=== PATIENT | female | born 1980 | race Hispanic/Latino ===

== ENCOUNTER 2018-10-05 14:34 | Emergency (ER) | payer MEDICAID ==
[2018-10-05 16:00] LABS: BASO # 0.1 K/uL (0.0-0.2); BASO % 1.1 % (0.0-2.0); EOS # 0.1 K/uL (0.0-0.7); EOS % 0.8 % (0.0-4.0); HEMOGLOBIN 13.4 g/dL (12.0-16.0); LYMPH # 1.9 K/uL (1.0-4.3); LYMPH % 24.7 % (20.0-40.0); MEAN CELL VOLUME 90.8 fl (81.0-99.0); MEAN CORPUSCULAR HEMOGLOBIN 30.8 pg (27.0-31.0); MEAN CORPUSCULAR HGB CONC 33.9 g/dL (33.0-37.0); MEAN PLATELET VOLUME 7.9 fl (7.2-11.7); MONO # 0.4 K/uL (0.0-0.8); MONO % 5.4 % (0.0-10.0); NEUT # 5.1 K/uL (1.8-7.0); RBC 4.36 Mil/uL (3.80-5.20); WHITE BLOOD COUNT 7.5 K/uL (4.8-10.8)
[2018-10-05 16:06] LABS: SQUAMOUS EPITHIAL 2 /hpf (0-5); URINE BACTERIA RARE (<OCC); URINE BILIRUBIN NEGATIVE (NEGATIVE); URINE BLOOD LARGE (NEGATIVE); URINE CLARITY SLIGHTY-CLOUDY (Clear); URINE COLOR YELLOW (YELLOW); URINE GLUCOSE (UA) NEG (NEGATIVE); URINE LEUKOCYTE ESTERASE NEG Leu/uL (Negative); URINE PROTEIN NEGATIVE (NEGATIVE); URINE UROBILINOGEN 0.2-1.0 mg/dL (0.2-1.0)
[2018-10-05 16:09] LABS: PROTHROMBIN TIME 11.9 Seconds (9.8-13.1)
[2018-10-05 16:12] LABS: PARTIAL THROMBOPLASTIN TIME 33.5 Seconds (25.6-37.1)
--- NOTE | 2018-10-05 16:37 | ED PDOC ---
HPI: Female Pain Time Seen by Provider: 10/05/18 15:02 Chief Complaint (Nursing): Female Genitourinary History Per: Patient Additional Complaint(s): Pt. states since August she's had 3 periods. States the first two lasted for 4-5 days and were without any pain. On 09/24/2018 she started bleeding once again which is still persistent but 2 days ago she developed L sided cramping prompting ED visit. Bleeding is quantified as the 2nd or 3rd day of her menstrual cycle. Also states for the past year and half she's had unintentional 50lb weight loss. Denies abd pain, dysuria, hematuria, hx of anemia, previous blood transfusions, fever, night sweats, melena, hematochezia, BRBPR, abnormal stools, cough, hemoptysis. Past Medical History Reviewed: Historical Data, Nursing Documentation, Vital Signs Vital Signs: Last Vital Signs Temp 98.6 F 10/05/18 14:46 Pulse 71 10/05/18 14:46 Resp 18 10/05/18 14:46 BP 118/76 10/05/18 14:46 Pulse Ox 100 10/05/18 14:46 - Medical History PMH: Denies: Chronic Kidney Disease - Surgical History Surgical History: Cholecystectomy - Family History Family History: States: No Known Family Hx - Home Medications Home Medications: Ambulatory Orders Medication Instructions Recorded Magnesium [Magnesium Citrate] 420 mg PO DAILY #1 ml 07/11/14 Alprazolam [Xanax] 0.5 mg PO Q6 PRN #10 tab 01/29/16 - Allergies Allergies/Adverse Reactions: Allergies Allergy/AdvReac Type Severity Reaction Status Date / Time No Known Allergies Allergy Verified 10/05/18 14:46 Review of Systems ROS Statement: Except As Marked, All Systems Reviewed And Found Negative Genitourinary Female: Positive for: Vaginal Bleeding, Pelvic Pain Physical Exam - Physical Exam Appears: Positive for: Well, Non-toxic, No Acute Distress Skin: Positive for: Normal Color, Warm. Negative for: Rash Eye Exam: Positive for: Normal appearance Cardiovascular/Chest: Positive for: Regular Rate, Rhythm Respiratory: Positive for: Normal Breath Sounds Gastrointestinal/Abdominal: Positive for: Normal Exam, Bowel Sounds, Soft. Negative for: Tenderness, Mass, Distended Back: Positive for: Normal Inspection. Negative for: L CVA Tenderness, R CVA Tenderness Neurologic/Psych: Positive for: Alert, Oriented (x3) - Laboratory Results Result Diagrams: 10/05/18 15:40 10/05/18 16:00 Lab Results: PT 11.9 Seconds (9.8-13.1) 10/05/18 15:40 INR 1.0 10/05/18 15:40 APTT 33.5 Seconds (25.6-37.1) 10/05/18 15:40 Urine Color Yellow (YELLOW) 10/05/18 15:40 Urine Clarity Slighty-cloudy (Clear) 10/05/18 15:40 Urine pH 6.0 (5.0-8.0) 10/05/18 15:40 Ur Specific [place] 1.023 (1.003-1.030) 10/05/18 15:40 Urine Protein Negative mg/dL (NEGATIVE) 10/05/18 15:40 Urine Glucose (UA) Neg mg/dL (NEGATIVE) 10/05/18 15:40 Urine Ketones Negative mg/dL (NEGATIVE) 10/05/18 15:40 Urine Blood Large (NEGATIVE) 10/05/18 15:40 Urine Nitrate Negative (NEGATIVE) 10/05/18 15:40 Urine Bilirubin Negative (NEGATIVE) 10/05/18 15:40 Urine Urobilinogen 0.2-1.0 mg/dL (0.2-1.0) 10/05/18 15:40 Ur Leukocyte Esterase Neg Chun/uL (Negative) 10/05/18 15:40 Urine RBC (Auto) 10 /hpf (0-3) H 10/05/18 15:40 Urine Microscopic WBC 2 /hpf (0-5) 10/05/18 15:40 Ur Squamous Epith Cells 2 /hpf (0-5) 10/05/18 15:40 Urine Bacteria Rare (<OCC) 10/05/18 15:40 - ECG O2 Sat by Pulse Oximetry: 100 - Progress ED Course And Treament: Labs, TVUS ordered. Pt. informed of all results and advised to f/u with PMD. Pt. states she f/u with [facility] which includes an OBGYN specialty. Advised to f/u but is to return to ED immediately if symptoms worsen. Pt. verbalized correct understanding of necessary f/u and plan. Disposition - Clinical Impression Clinical Impression: Abnormal uterine bleeding (AUB), Unintentional weight loss - Patient ED Disposition Is Patient to be Admitted: No - Disposition Referrals: [facility] [Outside] Disposition: Routine/Home Disposition Time: 17:39 Condition: STABLE Additional Instructions: FOLLOW UP WITH [facility] FOR FURTHER EVALUATION RETURN TO ED IMMEDIATELY IF SYMPTOMS WORSEN ROLANDO DUMONT, thank you for letting us take care of you today. Your provider was Doug Khan MD and you were treated for VAGINAL BLEEDING. The emergency medical care you received today was directed at your acute symptoms. If you were prescribed any medication, please fill it and take as directed. It may take several days for your symptoms to resolve. Return to the Emergency Department if your symptoms worsen, do not improve, or if you have any other problems. Please contact your doctor or call one of the physicians/clinics you have been referred to that are listed on the Patient Visit Information form that is included in your discharge packet. Bring any paperwork you were given at discharge with you along with any medications you are taking to your follow up visit. Our treatment cannot replace ongoing medical care by a primary care provider outside of the emergency department. Thank you for allowing the [facility] team to be part of your care today. If you had an X-Ray or CT scan: A Radiologist will review the ED reading if any change in treatment is needed we will contact you. If you had a blood, urine, or wound culture: It will take several days for the results, if any change in treatment is needed we will contact you. If you had an STI test: It will take 48 hours for the results. Please call after 1 week if you have not heard back. Instructions: Absent or Irregular Periods Forms: [facility] ([place])
[2018-10-05 16:38] LABS: ALB/GLOB RATIO 1.4 (1.0-2.1); ALBUMIN 4.3 g/dL (3.5-5.0); ALT/SGPT 35 U/L (9-52); AST/SGOT 25 U/L (14-36); BLOOD UREA NITROGEN 14 mg/dl (7-17); CALCIUM 9.5 mg/dL (8.4-10.2); GFR NON-AFRICAN AMERICAN > 60
--- NOTE | 2018-10-05 16:55 | US ---
Date of service: 10/05/2018 HISTORY: pelvic pain; vaginal bleeding COMPARISON: None available. TECHNIQUE: Transabdominal and transvaginal pelvic ultrasound was performed with longitudinal and transverse images submitted for interpretation. FINDINGS: UTERUS: Measures 7.8 x 4.5 x 6.0 cm. Normal in size and appearance. No fibroid or other mass lesion seen. ENDOMETRIUM: Measures 3.0 mm in diameter. Unremarkable. CERVIX: A moderate sized nabothian cysts identified anteriorly, measure 1.3 x 0.9 x 1.5 cm-simple in appearance. RIGHT OVARY: Measures 2.9 x 1.7 x 2.4 cm. No solid mass. Normal flow. LEFT OVARY: Measures 4.9 x 2.4 x 3.0 cm. A 2.8 x 2.1 x 3.3 cm solid lesion is not completely excluded related to left ovary, mildly enlarging it. Normal flow. FREE FLUID: No significant free fluid noted. OTHER FINDINGS: None. IMPRESSION: Mild enlarged of the left there is appreciated potentially by solid mass or potentially complex cyst measuring 2.8 x 2.1 x 3.3 cm. Consider follow-up MRI of the pelvis if clinically warranted for further characterization. Right ovary and uterus unremarkable. Moderate nabothian cyst anterior cervix appearing simple 1.5 cm greatest dimension.
[2018-10-05 19:03] VITALS: BP 100/63; PULSE 80; RESP 18; TEMP 98.1
[2018-10-05 19:33] VITALS: O2SAT 100
== END 2018-10-05 17:50 | disposition home or self-care (01) ==
LOC: H.ER 14:34
DX: N93.9 Abnormal uterine and vaginal bleeding, unspecified (principal); R63.4 Abnormal weight loss

== ENCOUNTER 2018-11-05 11:02 | Emergency (ER) | payer MEDICAID ==
[2018-11-05] MEDS ORDERED: Sodium Chloride 0.9% 1,000 ML IV STA (12:10)
[2018-11-05 13:03] LABS: BASO % 0.6 % (0.0-2.0); EOS % 0.9 % (0.0-4.0); HEMOGLOBIN 14.4 g/dL (12.0-16.0); LYMPH # 1.5 K/uL (1.0-4.3); LYMPH % 29.2 % (20.0-40.0); MEAN CELL VOLUME 91.3 fl (81.0-99.0); MEAN CORPUSCULAR HEMOGLOBIN 30.4 pg (27.0-31.0); MEAN CORPUSCULAR HGB CONC 33.3 g/dL (33.0-37.0); MEAN PLATELET VOLUME 8.1 fl (7.2-11.7); MONO # 0.4 K/uL (0.0-0.8); MONO % 7.1 % (0.0-10.0); NEUT # 3.1 K/uL (1.8-7.0); NEUT % 62.2 % (50.0-75.0); NRBC % 0.1 % (0.0-0.0); RBC 4.75 Mil/uL (3.80-5.20); RED CELL DISTRIBUTION WIDTH 14.6 % (11.5-14.5)
[2018-11-05 13:10] LABS: SQUAMOUS EPITHIAL 7 /hpf (0-5); URINE BACTERIA RARE (<OCC); URINE BILIRUBIN NEGATIVE (NEGATIVE); URINE BLOOD LARGE (NEGATIVE); URINE CLARITY CLOUDY (Clear); URINE COLOR AMBER (YELLOW); URINE GLUCOSE (UA) NEG (NEGATIVE); URINE LEUKOCYTE ESTERASE NEG Leu/uL (Negative); URINE PROTEIN 30 mg/dL (NEGATIVE)
[2018-11-05 13:11] LABS: ALB/GLOB RATIO 1.4 (1.0-2.1); ALBUMIN 4.4 g/dL (3.5-5.0); ALT/SGPT 29 U/L (9-52); AST/SGOT 25 U/L (14-36); BLOOD UREA NITROGEN 12 mg/dl (7-17); CALCIUM 9.3 mg/dL (8.4-10.2); GFR NON-AFRICAN AMERICAN > 60
--- NOTE | 2018-11-05 14:22 | ED PDOC ---
HPI: Abdomen Time Seen by Provider: 11/05/18 11:35 Chief Complaint (Nursing): Female Genitourinary Chief Complaint (Provider): Abdominal Pain History Per: Patient History/Exam Limitations: no limitations Onset/Duration Of Symptoms: Days (2) Current Symptoms Are (Timing): Still Present Location Of Pain/Discomfort: LLQ Quality Of Discomfort: "Pain" Associated Symptoms: denies: Fever Additional Complaint(s): 38 year old female presents to the ED for an evaluation of nausea and vomiting since Sunday. Patient reports of worsening LLQ pain onset for the past 2 days. She was recently told she has a cyst on her left ovary after a work up for continuous vaginal bleeding. She was started on control by her primary which stopped the bleeding and returned 3 days afterwards. Patient reports the LLQ pain is new with concerning symptom. Otherwise, she denies, bloody or bilious vomiting, diarrhea or fever. PMD: Manuela Hawley Past Medical History Reviewed: Historical Data, Nursing Documentation, Vital Signs Vital Signs: Last Vital Signs Temp 98.0 F 11/05/18 11:06 Pulse 89 11/05/18 11:06 Resp 16 11/05/18 11:06 BP 103/65 11/05/18 11:06 Pulse Ox 98 11/05/18 11:06 - Medical History PMH: No Chronic Diseases Denies: Chronic Kidney Disease - Surgical History Surgical History: Cholecystectomy - Family History Family History: States: Unknown Family Hx - Social History Current smoker - smoking cessation education provided: Yes (Light Smoker < 10 Cigarettes Daily) Alcohol: None Drugs: Cannabis - Home Medications Home Medications: Ambulatory Orders Medication Instructions Recorded Magnesium [Magnesium Citrate] 420 mg PO DAILY #1 ml 07/11/14 Alprazolam [Xanax] 0.5 mg PO Q6 PRN #10 tab 01/29/16 - Allergies Allergies/Adverse Reactions: Allergies Allergy/AdvReac Type Severity Reaction Status Date / Time No Known Allergies Allergy Verified 10/05/18 14:46 Review of Systems ROS Statement: Except As Marked, All Systems Reviewed And Found Negative Constitutional: Negative for: Fever, Chills Gastrointestinal: Positive for: Nausea, Vomiting, Abdominal Pain. Negative for: Diarrhea Physical Exam - Reviewed Nursing Documentation Reviewed: Yes Vital Signs Reviewed: Yes - Physical Exam Appears: Positive for: Well, Non-toxic, No Acute Distress Head Exam: Positive for: ATRAUMATIC, NORMAL INSPECTION, NORMOCEPHALIC Skin: Positive for: Normal Color, Warm, Dry. Negative for: Rash Eye Exam: Positive for: EOMI, Normal appearance, PERRL ENT: Positive for: Normal ENT Inspection Neck: Positive for: Normal, Painless ROM, Supple. Negative for: Decreased ROM Cardiovascular/Chest: Positive for: Regular Rate, Rhythm. Negative for: Murmur Respiratory: Positive for: Normal Breath Sounds. Negative for: Decreased Breath Sounds, Wheezing, Respiratory Distress Gastrointestinal/Abdominal: Positive for: Tenderness (LLQ) Back: Positive for: Normal Inspection Extremity: Positive for: Normal ROM. Negative for: Tenderness, Pedal Edema, Deformity Neurologic/Psych: Positive for: Alert, Oriented (x3) - Laboratory Results Result Diagrams: 11/05/18 12:50 11/05/18 12:50 Lab Results: Total Bilirubin 0.4 mg/dl (0.2-1.3) 11/05/18 12:50 AST 25 U/L (14-36) 11/05/18 12:50 ALT 29 U/L (9-52) 11/05/18 12:50 Alkaline Phosphatase 55 U/L (38-126) 11/05/18 12:50 Total Protein 7.7 G/DL (6.3-8.2) 11/05/18 12:50 Albumin 4.4 g/dL (3.5-5.0) 11/05/18 12:50 Globulin 3.2 gm/dL (2.2-3.9) 11/05/18 12:50 Albumin/Globulin Ratio 1.4 (1.0-2.1) 11/05/18 12:50 Urine Color [place] (YELLOW) 11/05/18 12:50 Urine Clarity Cloudy (Clear) 11/05/18 12:50 Urine pH 5.0 (5.0-8.0) 11/05/18 12:50 Ur Specific [place] 1.028 (1.003-1.030) 11/05/18 12:50 Urine Protein 30 mg/dL (NEGATIVE) 11/05/18 12:50 Urine Glucose (UA) Neg mg/dL (NEGATIVE) 11/05/18 12:50 Urine Ketones 80 mg/dL (NEGATIVE) 11/05/18 12:50 Urine Blood Large (NEGATIVE) 11/05/18 12:50 Urine Nitrate Negative (NEGATIVE) 11/05/18 12:50 Urine Bilirubin Negative (NEGATIVE) 11/05/18 12:50 Urine Urobilinogen 2.0 mg/dL (0.2-1.0) H 11/05/18 12:50 Ur Leukocyte Esterase Neg Chun/uL (Negative) 11/05/18 12:50 Urine RBC (Auto) 84 /hpf (0-3) H 11/05/18 12:50 Urine Microscopic WBC 7 /hpf (0-5) H 11/05/18 12:50 Ur Squamous Epith Cells 7 /hpf (0-5) H 11/05/18 12:50 Urine Bacteria Rare (<OCC) 11/05/18 12:50 - ECG O2 Sat by Pulse Oximetry: 98 (RA) Pulse Ox Interpretation: Normal Medical Decision Making Medical Decision Making: Impression: Will order labs, Toradol for pain, pelvis US and reassess patient Plan: CMP CBC w/ differential Normal saline 1000 mls/hr Toradol 30mg Zofran 4mg UA US Transvaginal Reevaluation US Pelvis FINDINGS: UTERUS: Measures 5.4 x 6 x 9 cm. Normal in size and appearance. No fibroid or other mass lesion seen. ENDOMETRIUM: Measures 3.5 mm in diameter. No ultrasound findings to suggest gestational sac, fluid, debris, mass or polyp or other pathologic process within the endometrium. CERVIX: No cervical abnormality identified.Incidental finding: Nabothian cysts the largest measures 1.4 cm RIGHT OVARY: Measures 1.8 x 2.6 x 3.0 cm. No solid mass. Normal flow. Multiple subcentimeter follicles. LEFT OVARY: Measures 1.9 x 2.5 x 2.8 cm. No solid mass. Normal flow. Multiple subcentimeter follicles. FREE FLUID: Moderate volume, incompletely visualized fluid in the pelvis. This represents a new finding compared to the prior study. OTHER FINDINGS: None. IMPRESSION: New free fluid in the pelvis. This be categorized as moderate volume incompletely visualize. No dominant cyst or adnexal masses. Unremarkable uterus and endometrial echo complex. [id number] Case discussed w/ Dr. Strauss (OBGYN financial institution treasurer) who states no emergent intervention needed at this time. Patient to be discharged home w/ instructions to follow up with OBGYN. [id number] Plan of care discussed with patient, who is agreeable - states she will follow up with her PMD as well as OBGYN On reassessment, patient states pain has completely resolved and she has not vomited after being given the medications. Patient is stable upon discharge home; instructed to return if symptoms worsen or new symptoms arise. Scribe Attestation: Documented by Carl Castellano, acting as a scribe for Ada Cohen MD. Provider Scribe Attestation: All medical record entries made by the Scribe were at my direction and personally dictated by me. I have reviewed the chart and agree that the record accurately reflects my personal performance of the history, physical exam, medical decision making, and the department course for this patient. I have also personally directed, reviewed, and agree with the discharge instructions and disposition. Disposition - Clinical Impression Clinical Impression: Abdominal pain, Vomiting, Abnormal uterine bleeding (AUB) - Disposition Disposition: Routine/Home Disposition Time: 16:59 Condition: IMPROVED Additional Instructions: Drink plenty of water and rest while symptoms last. Follow up with primary medical doctor and [employer] supervisor in 1 to 2 weeks. Return to the emergency department if symptoms worsen or if new symptoms develop. Instructions: Acute Abdomen (Belly Pain), Nausea and Vomiting, Adult (DC) Forms: [employer] (Yi) Print Language: KHMER
--- NOTE | 2018-11-05 16:11 | US ---
Date of service: 11/05/2018 HISTORY: Left lower abdominal pain. LMP 09/07/2018 COMPARISON: 10/05/2018. Pelvic ultrasound TECHNIQUE: Transvaginal only. Real -time technique with 2D, duplex and color Doppler FINDINGS: UTERUS: Measures 5.4 x 6 x 9 cm. Normal in size and appearance. No fibroid or other mass lesion seen. ENDOMETRIUM: Measures 3.5 mm in diameter. No ultrasound findings to suggest gestational sac, fluid, debris, mass or polyp or other pathologic process within the endometrium. CERVIX: No cervical abnormality identified.Incidental finding: Nabothian cysts the largest measures 1.4 cm RIGHT OVARY: Measures 1.8 x 2.6 x 3.0 cm. No solid mass. Normal flow. Multiple subcentimeter follicles. LEFT OVARY: Measures 1.9 x 2.5 x 2.8 cm. No solid mass. Normal flow. Multiple subcentimeter follicles. FREE FLUID: Moderate volume, incompletely visualized fluid in the pelvis. This represents a new finding compared to the prior study. OTHER FINDINGS: None. IMPRESSION: New free fluid in the pelvis. This be categorized as moderate volume incompletely visualize. No dominant cyst or adnexal masses. Unremarkable uterus and endometrial echo complex.
[2018-11-05 16:57] VITALS: BP 103/63; PULSE 60; RESP 18; TEMP 98.4
[2018-11-05 16:59] VITALS: O2SAT 98
== END 2018-11-05 17:35 | disposition home or self-care (01) ==
LOC: H.ER 11:02
DX: R10.32 Left lower quadrant pain (principal); R11.10 Vomiting, unspecified; N93.9 Abnormal uterine and vaginal bleeding, unspecified
CPT/HCPCS: 76830; 80053; 81003; 81025; 85025; 96361; 96374; 96375; 99283; J1885; J2405; J7030